=== PATIENT | female | born 1965 | race Caucasian/White ===

== ENCOUNTER 2023-12-31 14:20 | Emergency (ER) | payer OTHER ==
[2023-12-31 14:40] VITALS: BP 171/79; O2SAT 99
--- NOTE | 2023-12-31 14:56 | ED Physician Documentation ---
PD HPI HEENT - Stated complaint Stated Complaint: MOUTH INJURY - Chief complaint Chief Complaint: Heent - History obtained from History obtained from: Patient, Family - History of Present Illness Timing - onset: Today Timing - duration: Hours Timing - details: Abrupt onset, Still present Location: Mouth Improves: Ice Worsens: Other (moving the lips) Associated symptoms: No: Fever, Congestion, Rhinorrhea, Trismus, Unable to swallow, Swollen nodes, Facial swelling, Headache, Cough Similar symptoms before: Has not had sx before Recently seen: Not recently seen - Additional information Additional information: Previously well 58-year-old Keila Ayala was leaning over her fireplace today when her hands slipped and she fell forward onto a [place]wn surface directly on her lower lip. She has a laceration to the inside and outside of the lip and this does not cross the [place] border. She does not have a loose tooth she does have some pain in the left front tooth that is mild. She has no pain to her lower teeth. She did not get knocked out. Review of Systems Constitutional: denies: Fever Eyes: denies: Decreased vision Ears: denies: Ear pain Nose: denies: Congestion Throat: reports: Other (lip laceration). denies: Sore throat Cardiac: denies: Chest pain / pressure Respiratory: denies: Dyspnea, Cough PD PAST MEDICAL HISTORY - Past Medical History Past Medical History: No - Past Surgical History Past Surgical History: No - Present Medications Home Medications: Ambulatory Orders Medication Instructions Recorded Confirmed No Known Home Medications 12/31/23 12/31/23 - Allergies Allergies/Adverse Reactions: Allergies Allergy/AdvReac Type Severity Reaction Status Date / Time No Known Drug Allergies Allergy Verified 12/31/23 14:36 - Social History Does the pt smoke?: No Smoking Status: Never smoker Does the pt drink ETOH?: No Does the pt have substance abuse?: No - Immunizations Immunizations are current?: Yes PD ED PE NORMAL - Vitals Vital signs reviewed: Yes (hypertensive ) - General General: Alert and oriented X 3, No acute distress, Well developed/nourished - HEENT HEENT: PERRL, EOMI, Other (There is a 1.5 cm laceration horizontally across the lower lip. There is a second laceration horizontally on the opposing buccal surface. There are no loose teeth. There is no foreign material in the wound. 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, No motor deficit, No sensory deficit, Normal speech Eye Opening: Spontaneous Motor: Obeys Commands Verbal: Oriented GCS Score: 15 - Psych Psych: Normal mood, Normal affect PD ED PE EXPANDED - HEENT HEENT Visual: 1 - laceration (1.5cm) 2 - laceration (buccal laceration 2cn) 3 - tenderness (front tooth not loose) Results - Vitals Vitals: Vital Signs - 24 hr 12/31/23 14:29 Temperature 35.5 C L Heart Rate 57 L Respiratory 16 Rate Blood Pressure 171/79 H O2 Saturation 99 Oxygen O2 Source Room air PD Medical Decision Making - ED course Complexity details: considered differential, d/w patient, d/w family ED course: 55-year-old Keila Ayala has lacerated her lower lip she has a laceration to the buccal mucosa as well as the external portion of the lip. The external portion of the lip has a small laceration which at rest appears closed. We are treating this conservatively. Departure - Departure Disposition: 01 Home, Self Care Clinical Impression: Laceration of lip without complication Qualifiers: Encounter type: initial encounter Qualified Code(s): S01.511A - Laceration without foreign body of lip, initial encounter Condition: Stable Instructions: ED Laceration Mouth Follow-Up: Melany Montesinos MD [Primary Care Provider] - Comments: Keila, these lacerations to your lower lip should heal rapidly. A rinse of the inside of the mouth with some water with a teaspoon of salt in a quart is recommended. Soft foods are recommended. We did not suture the outside lip and this is expected to heal over a 5 day period of time. Forms: PCP List Discharge Date/Time: 12/31/23 15:04
== END 2023-12-31 15:04 | disposition home or self-care (01) ==
LOC: ED 14:20
DX: S01.511A Laceration without foreign body of lip, initial encounter (principal); W01.0XXA Fall on same level from slipping, tripping and stumbling without subsequent striking against object, initial encounter
CPT/HCPCS: 99282